=== PATIENT | male | born 1950 | race Hispanic/Latino ===

== ENCOUNTER 2017-08-10 15:35 | Emergency (ER) | payer MEDICARE, MEDICAID ==
[2017-08-10 15:58] VITALS: RESP 18
[2017-08-10] MEDS ORDERED: Sodium Chloride 0.9% 1,000 ML IV ONE (16:20)
[2017-08-10] MEDS ORDERED: MethylPREDNISolone 40 mg Vial ONE (16:28)
[2017-08-10 17:01] LABS: BASO # 0.1 K/uL (0.0-0.2); BASO % 0.9 % (0.0-2.0); EOS # 0.1 K/uL (0.0-0.7); EOS % 1.3 % (0.0-4.0); HEMATOCRIT 32.4 % (35.0-51.0); LYMPH # 1.2 K/uL (1.0-4.3); LYMPH % 14.5 % (20.0-40.0); MEAN CELL VOLUME 90.3 fL (80.0-94.0); MEAN CORPUSCULAR HEMOGLOBIN 30.1 pg (27.0-31.0); MEAN CORPUSCULAR HGB CONC 33.4 g/dL (33.0-37.0); MEAN PLATELET VOLUME 6.7 fL (7.2-11.7); MONO # 0.6 K/uL (0.0-0.8); MONO % 7.7 % (0.0-10.0); RED CELL DISTRIBUTION WIDTH 15.5 % (11.5-14.5); WHITE BLOOD COUNT 8.4 K/uL (4.8-10.8)
[2017-08-10 17:09] LABS: CHLORIDE 100 mmol/L (98-107); SODIUM 135 mmol/L (132-148)
[2017-08-10 17:11] LABS: GFR AFRICAN-AMERICAN > 60
[2017-08-10 17:12] LABS: ALKALINE PHOSPHATASE 106 U/L (38-126); ALT/SGPT 54 U/L (21-72); AST/SGOT 31 U/L (17-59); BILIRUBIN,TOTAL 0.9 mg/dL (0.2-1.3); BLOOD UREA NITROGEN 19 mg/dL (9-20); CARBON DIOXIDE 26 mmol/L (22-30); GLUCOSE,RANDOM 84 mg/dL (75-110); TOTAL PROTEIN 6.3 g/dL (6.3-8.3)
--- NOTE | 2017-08-10 17:46 | C.PDOC ---
History Of Present Illness 66 year old male presents to Emergency Department for evaluation of productive cough for the last 2 weeks. Patient reports taking over the counter cough medications without improvement. Patient also reports associated brown sputum, generalized weakness, and shortness of breath on exertion. Otherwise, denies chest pain, nausea, vomiting, abdominal pain, fever, or chills. Time Seen by Provider: 08/10/17 16:06 Chief Complaint (Nursing): Medical Clearance History Per: Patient History/Exam Limitations: no limitations Onset/Duration Of Symptoms: Days Current Symptoms Are (Timing): Still Present Recent travel outside of the [place]: No Additional History Per: Patient Past Medical History Reviewed: Historical Data, Nursing Documentation, Vital Signs Vital Signs: Last Vital Signs Temp 99 F 08/10/17 15:52 Pulse 74 08/10/17 15:52 Resp 18 08/10/17 16:17 BP 120/71 08/10/17 15:52 Pulse Ox 97 08/10/17 18:23 Surgical History: Appendectomy - [facility] Procedures CLOSURE SKIN & SUBCUTANEOUS NEC (02/14/15) COLONOSCOPY (06/03/02) ESOPHAGOGASTRODUODENOSCOPY [EGD] W/CLOSED BIOPSY (06/03/02) PACKED CELL TRANSFUSION (06/03/02) TETANUS TOXOID ADMINIST (02/14/15) Family History: States: Unknown Family Hx - Social History Hx Tobacco Use: No Hx Alcohol Use: No Hx Substance Use: No - Immunization History Hx Tetanus Toxoid Vaccination: No Hx Influenza Vaccination: No Hx Pneumococcal Vaccination: No Review Of Systems Except As Marked, All Systems Reviewed And Found Negative. Constitutional: Positive for: Weakness. Negative for: Fever, Chills Cardiovascular: Negative for: Chest Pain, Palpitations, Light Headedness Respiratory: Positive for: Cough, SOB with Excertion, Sputum. Negative for: Hemoptysis, Wheezing Gastrointestinal: Negative for: Nausea, Vomiting, Abdominal Pain Skin: Negative for: Rash, Bruising Neurological: Negative for: Headache, Dizziness Physical Exam - Physical Exam Appears: Non-toxic, No Acute Distress, Other (thin elderly male, frail) Skin: Normal Color, Warm, Dry Head: Atraumatic, Normacephalic Eye(s): bilateral: Normal Inspection Oral Mucosa: Moist Neck: Normal ROM, Supple Chest: Symmetrical Cardiovascular: Rhythm Regular, No Murmur Respiratory: Normal Breath Sounds, No Rales, No Rhonchi, No Wheezing Gastrointestinal/Abdominal: Soft, No Tenderness Extremity: Normal ROM, No Deformity Neurological/Psych: Oriented x3, Normal Speech ED Course And Treatment - Laboratory Results Result Diagrams: 08/10/17 16:56 08/10/17 16:56 O2 Sat by Pulse Oximetry: 97 (RA) Pulse Ox Interpretation: Normal Medical Decision Making Medical Decision Making: Plan: * Blood work * CXR * Solu-Medrol * IV fluids Reassess and dispo Labs reviewed and unremarkable. XRay shows infiltrate left lower lobe. Patient reevaluated and discussed results. He does not wish to stay in the hospital and wants oral antibiotics. Patient has no fever and O2 saturation is adequate, he does not appear in any respiratory distress. Ordered dose of IV Rocephin and plan is to discharge with Rx. Advised patient to take oral antibiotics and he must follow up with PCP in 2 days for evaluation. Instruct to return to hospital if no improvement or any worsening symptoms. RN informs me the patient does not want IV Rocephin he really needs to leave and wants pill and discharge papers. Disposition Counseled Patient/Family Regarding: Studies Performed, Diagnosis, Need For Followup, Rx Given - Disposition Referrals: Elton Haile MD [Staff Provider] - Disposition: HOME/ ROUTINE Disposition Time: 19:00 Condition: STABLE Additional Instructions: Thank you for letting us take care of you today. Your provider was RYAN Rushing. You were treated for pneumonia. Your prescription was sent to [facility]. Please take oral antibiotics and you must follow up with PCP in 2 days for evaluation. Instruct to return to hospital if no improvement or any worsening symptoms. Thank you for allowing the [facility] team to be part of your care today. Prescriptions: levoFLOXacin [Levaquin] 750 mg PO DAILY #5 tab Promethazine DM [Phenergan DM Syrup] 10 ml PO Q8 PRN #300 ml PRN Reason: Cough Instructions: Bacterial Pneumonia (ED) Forms: [employer] (Indonesian) - POA Present On Arrival: None - Clinical Impression Clinical Impression: Pneumonia - PA / [employer]SM[employer]ER / Resident Statement MD/DO has reviewed & agrees with the documentation as recorded. - Scribe Statement The provider has reviewed the documentation as recorded by the Scribe Maria A Haile All medical record entries made by the Scribe were at my direction and personally dictated by me. I have reviewed the chart and agree that the record accurately reflects my personal performance of the history, physical exam, medical decision making, and the department course for this patient. I have also personally directed, reviewed, and agree with the discharge instructions and disposition.
[2017-08-10] MEDS ORDERED: cefTRIAXone IV 1 gm in Dextros 50 ML IV ONE (17:54)
[2017-08-10 18:47] VITALS: BP 128/72; PULSE 90; TEMP 97.5; O2SAT 96
--- NOTE | 2017-08-11 09:54 | RAD ---
HISTORY: SOB, cough COMPARISON: No prior. TECHNIQUE: Chest PA and lateral FINDINGS: LUNGS: A dense infiltrate is appreciate the left based affecting the left lower lobe. Remaining lung silva appear clear. PLEURA: Trace of pleural effusion is questioned though not definite. None is seen the right. No pneumothorax bilaterally. CARDIOVASCULAR: Normal. OSSEOUS STRUCTURES: No significant abnormalities. VISUALIZED UPPER ABDOMEN: Normal. OTHER FINDINGS: None. IMPRESSION: Left lower lobe infiltrate. Trace of pleural effusion not excluded. Remainder the examination is unremarkable.
== END 2017-08-10 18:46 | disposition home or self-care (01) ==
LOC: C.ER 15:35
DX: J18.9 Pneumonia, unspecified organism (principal)
CPT/HCPCS: 71020; 80053; 85025; 96361; 96374; 99285; J2930; J7040